=== PATIENT | female | born 1990 | race Caucasian/White ===

== ENCOUNTER 2016-10-25 20:01 | Emergency (ER) | payer OTHER ==
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
[2016-10-25 21:45] VITALS: BP 115/74; PULSE 65; RESP 16; TEMP 97.7; O2SAT 96
== END 2016-10-25 21:46 | disposition home or self-care (01) ==
DX: S52.125A Nondisplaced fracture of head of left radius, initial encounter for closed fracture (principal); S52.124A Nondisplaced fracture of head of right radius, initial encounter for closed fracture; V18.0XXA Pedal cycle driver injured in noncollision transport accident in nontraffic accident, initial encounter; Y92.410 Unspecified street and highway as the place of occurrence of the external cause; Y99.8 Other external cause status; Y93.55 Activity, bike riding
CPT/HCPCS: A4565

== ENCOUNTER 2017-09-03 23:24 | Emergency (ER) | payer MEDICAID, OTHER ==
--- NOTE | 2017-09-03 23:34 | EDPHY ---
H & P Stated Complaint: nausea, VALLEJO, fever, lower abd pain since Sunday Source: Patient Exam Limitations: No limitations - Personal History LMP (Females 10-55): IUD In Place Current Tetanus/Diphtheria Vaccine: Yes - Medical/Surgical History Hx Asthma: Yes Hx Chronic Respiratory Disease: No Hx Diabetes: No Hx Cardiac Disease: No Hx Renal Disease: No Hx Cirrhosis: No Hx Alcoholism: No Hx HIV/AIDS: No Hx Splenectomy or Spleen Trauma: No Other PMH: TONSILS, LEFT FOOT SURG, CHILDHOOD ASTHMA. elbow fractures - Social History Smoking Status: Never smoked Time Seen by Provider: 09/03/17 23:32 HPI/ROS: HPI: This is a 27-year-old female who presents with Chief Complaint: nausea, VALLEJO, lower abd pain since Sunday Location:vaginal Quality: Cramping Duration: 2 days Signs and Symptoms: no fever, + nausea, no vomiting, no hematemesis, no blood in stool, no abdominal bloating, no diarrhea, no back pain, no urinary symptoms , no vaginal discharge, + scant vaginal bleeding, no indigestion, no chest pain , no shortness of breath Timing: acute Severity: intermittent Context: Patient had a Liletta IUD placed in March 2017 by her OBGYN in [place]. She reports that she had no periods for the last 2 months approximately 3-4 days ago she started to experience vaginal spotting and bleeding accompanied by lower abdominal pelvic cramping that was intermittent in nature. She reports that she started to feel nauseous but denies any vomiting. She has not had any recent sexual intercourse. Patient reports that she went online and researched it may be due to her IUD. She tried to feel her IUD strings tonight and she was unable to. Patient is eating without any difficulties. No prior history of abdominal surgery. Patient just returned from [facility] approximately 7 days ago. Patient denies any urinary symptoms. Patient does note some scant vaginal discharge that her OBGYN told her was normal. Approximately 6 months ago she had a complete STD workup that was negative per patient. She is requesting to be tested for bacterial vaginosis and candidiasis. She is extremely frustrated as she feels that since having her IUD placed she has been more hormonal and had more cramping and vaginal discharge. Modifying Factors: None Comment: ROS: see HPI Constitutional: No fever, no chills, no weight loss Eyes: No blurred vision Respiratory: No shortness of breath, no cough Cardiovascular: No chest pain, no palpitations Gastrointestinal: No nausea, no vomiting, no diarrhea, no hematemesis, no blood in stool Genitourinary: No dysuria, no blood in urine Extremities: No myalgias, no edema Neurologic: No weakness, no numbness Skin: No rashes, no petechiae Hematologic: No bruising, no bleeding MEDICAL/SURGICAL/SOCIAL HISTORY: Medical/Surgical history: TONSILS, LEFT FOOT SURG, CHILDHOOD ASTHMA. elbow fractures Social history: Employed. Family history noncontributory. CONSTITUTIONAL: Extremely polite and cooperative adult white female, awake and alert, no obvious distress HEENT: Atraumatic and normocephalic, PERRL, EOMI. Nares patent; no rhinorrhea; no nasal mucosal edema. Tympanic membranes clear. Oropharynx clear, no exudate and moist pink mucosa. Airway patent. No lymphadenopathy. No meningismus. Cardiovascular: Normal S1/S2, regular rate, regular rhythm, without murmur rub or gallop. PULMONARY/CHEST: Symmetrical and nontender. Clear to auscultation bilaterally. Good air movement. No accessory muscle usage. ABDOMEN: Soft, nondistended, nontender, no rebound, no guarding, no peritoneal signs, no masses or organomegaly. No CVAT. PELVIC: normal external genitalia, normal cervix, cervical os was closed, mode of visualized only 1 blue string, no cervical motion tenderness, no adnexal mass , + scant white discharge, no bleeding. The exam was performed with a circular knife cutter machine. EXTREMITIES: 2/2 pulses, strength 5/5, no deformities, no clubbing, no cyanosis or edema. NEUROLOGICAL: no focal neuro deficits. GCS 15. SKIN: Warm and dry, no erythema. no rash. Good capillary refill. (Kameron,Terra) Constitutional: Initial Vital Signs Temperature (C) 36.4 C 09/03/17 23:25 Heart Rate 71 09/03/17 23:25 Respiratory Rate 18 09/03/17 23:25 Blood Pressure 141/81 H 09/03/17 23:25 O2 Sat (%) 98 09/03/17 23:25 O2 Delivery Mode Room Air Allergies/Adverse Reactions: Penicillins Allergy (Verified 10/25/16 20:03) Home Medications: Medication Instructions Recorded NK [No Known Home Meds] 09/03/17 Medical Decision Making ED Course/Re-evaluation: During pelvic exam, I was only able to visualize 1 IUD strain. Pelvic ultrasound ordered to determine IUD placement. GC, wet prep, bacterial vaginosis swabs taken her scant amount of vaginal discharge which I suspect is normal physiological discharge. 0020: End of Shift. Signed over to Dr. Pereira pending US and vaginal swab results. I anticipate that the patient will be discharged home with OBGYN follow-up. This patient was seen under the supervision of my secondary supervising physician. I evaluated care for this patient independently. Discussed patient with Dr. Pereira who did not examine the patient. (Elizabeth Melo) [id number]': Patient's IUD is in good position on ultrasound. As well as the ultrasound does not show acute inflammatory process or significant ovarian cyst. This was called to me by Dr. Jose Dutton. (Daljit Pereira) Differential Diagnosis: Abdominal pain in a female including but not limited to ovarian cyst, pelvic inflammatory disease, ovarian torsion, urinary tract infection, and appendicitis. (Elizabeth Melo) - Data Points Laboratory Results: 09/04/17 09/04/17 00:00 00:00 Trichomonas (Wet Prep) Pending Briana species DNA Pending C.trachomatis RNA (TMA) Pending Gardnerella DNA Probe Pending N.gonorrhoeae RNA (TMA) Pending Trichomonas DNA Probe Pending Departure - Departure Disposition: Home, Routine, Self-Care Clinical Impression: Complication of intrauterine device (IUD) Qualifiers: Device complication type: unspecified Encounter type: initial encounter Qualified Code(s): T83.9XXA - Unspecified complication of genitourinary prosthetic device, implant and graft, initial encounter Condition: Good Instructions: Pelvic Pain in Women (ED) Additional Instructions: Please follow-up with your OBGYN in the next 7-10 days to discuss removing your IUD and other IUD options.
[2017-09-04 01:46] VITALS: BP 126/82
[2017-09-05 06:56] LABS: GC AMPLIFICATION GENPROBE NEGATIVE (NEGATIVE)
== END 2017-09-04 01:35 | disposition home or self-care (01) ==
DX: T83.9XXA Unspecified complication of genitourinary prosthetic device, implant and graft, initial encounter (principal); J45.909 Unspecified asthma, uncomplicated; Y73.2 Prosthetic and other implants, materials and accessory gastroenterology and urology devices associated with adverse incidents